=== PATIENT | male | born 1995 | race Caucasian/White ===

== ENCOUNTER 2023-11-01 23:14 | Emergency (ER) | payer MEDICAID ==
[~2023-11-01] VITALS: Ht 170.2 cm; Wt 92.7 kg
[2023-11-01] MEDS ORDERED: Ketorolac 30 MG/ML VIAL IM ONE (23:45)
[2023-11-02 01:20] VITALS: BP 111/73
== END 2023-11-02 01:20 | disposition home or self-care (01) ==
LOC: ED 23:14
DX: M25.512 Pain in left shoulder (principal); F17.290 Nicotine dependence, other tobacco product, uncomplicated; W19.XXXA Unspecified fall, initial encounter; Y93.72 Activity, wrestling; Y92.009 Unspecified place in unspecified non-institutional (private) residence as the place of occurrence of the external cause
CPT/HCPCS: J1885; L1830

== ENCOUNTER 2023-11-02 17:10 | Emergency (ER) | payer MEDICAID ==
[~2023-11-02] VITALS: Ht 170.2 cm; Wt 92.7 kg
[2023-11-02] MEDS ORDERED: NS 1,000 ML IV SCH (17:45)
[2023-11-02 18:00] LABS: HEMATOCRIT 51.6 % (42.0-52.0); HEMOGLOBIN 17.1 g/dL (13.5-18.0); MEAN CELL VOLUME 91 fl (78-100); MEAN CORPUSCULAR HEMOGLOBIN 30 pg (27-31); MEAN CORPUSCULAR HGB CONC 33 g/dL (33-37); MEAN PLATELET VOLUME 11.2 fl (7.4-10.4); PLATELET COUNT 258 K/mm3 (130-400); RED BLOOD COUNT 5.65 M/mm3 (4.20-5.60); RED CELL DISTRIBUTION WIDTH 12.4 % (11.5-14.5)
[2023-11-02 18:02] LABS: WHITE BLOOD COUNT 20.1 K/mm3 (4.8-10.8)
[2023-11-02 18:06] LABS: ALBUMIN 4.5 g/dL (3.5-5.0)
[2023-11-02 18:07] LABS: CALCIUM 9.9 mg/dL (8.3-10.5)
[2023-11-02 18:09] LABS: TOTAL PROTEIN 7.3 g/dL (6.4-8.3)
[2023-11-02 18:11] LABS: TOTAL BILIRUBIN 0.7 mg/dL (0.2-1.2)
[2023-11-02 18:13] LABS: LYMPHOCYTE 12 % (20-51); MONOCYTE 9 % (3-10); NEUTROPHILS 79 % (42-75)
[2023-11-02] MEDS ORDERED: Iohexol 300 - 100 ML VIAL IV ONE (18:40)
[2023-11-02] MEDS ORDERED: Ondansetron 4 MG/2 ML VIAL IV ONE (18:45)
[2023-11-02 19:29] LABS: URINE APPEARANCE CLEAR (CLEAR); URINE BILIRUBIN NEGATIVE (NEGATIVE); URINE BLOOD TRACE-INTACT (NEGATIVE); URINE COLOR YELLOW (YELLOW); URINE GLUCOSE NEGATIVE (NEGATIVE); URINE KETONE NEGATIVE (NEGATIVE); URINE LEUKOCYTE ESTERASE NEGATIVE (NEGATIVE); URINE NITRATE NEGATIVE (NEGATIVE); URINE PROTEIN(semi-quant) 3+ (NEGATIVE)
[2023-11-02 20:10] VITALS: BP 125/86
== END 2023-11-02 20:20 | disposition home or self-care (01) ==
LOC: ED 17:10
PROVIDERS: Nurse Practitioner Family
DX: D72.829 Elevated white blood cell count, unspecified (principal); F17.200 Nicotine dependence, unspecified, uncomplicated
CPT/HCPCS: J2405; J7030; Q9967